=== PATIENT | female | born 1935 | race Caucasian/White ===

== ENCOUNTER → 2016-12-03 | Outpatient (CLI) | payer MEDICARE, BC | LOC: LAB 12:07 | DX: R30.0 Dysuria (principal); B96.20 Unspecified Escherichia coli [E. coli] as the cause of diseases classified elsewhere ==

== ENCOUNTER 2019-01-25 09:39 | Outpatient (RCR) | payer MEDICARE, BC | END 2019-04-25 | disposition still patient (30) | LOC: PT | DX: Z90.49 Acquired absence of other specified parts of digestive tract (principal) ==

== ENCOUNTER 2020-09-30 09:49 | Outpatient (RCR) | payer MEDICARE, BC | END 2020-12-29 | LOC: PT | DX: M25.519 Pain in unspecified shoulder (principal); M54.2 Cervicalgia; R29.898 Other symptoms and signs involving the musculoskeletal system ==

== ENCOUNTER 2022-10-05 12:55 | Inpatient (IN) | payer MEDICARE, BC ==
[~2022-10-05] VITALS: Ht 157.5 cm; Wt 53.5 kg
[2022-10-05] MEDS ORDERED: ASPIRIN E.C. 8181 MG PO (15:20)
[2022-10-05] MEDS ORDERED: CEFDINIR300 MG PO (15:21)
[2022-10-05] MEDS ORDERED: ACETAMINOPHEN500 M7 PO (15:22)
[2022-10-05] MEDS ORDERED: ATORVASTATIN CA40 MG PO (15:22)
[2022-10-05] MEDS ORDERED: ALENDRONATE SOD70 MG PO (15:22)
[2022-10-05] MEDS ORDERED: BENADRYL ALLERG25 M2 PO (15:23)
[2022-10-05] MEDS ORDERED: LANTUS SOLOS100 U/ML SQ (15:40)
[2022-10-05] MEDS ORDERED: LEVOTHYROXIN0.075 MG PO (15:41)
[2022-10-05] MEDS ORDERED: LUTEIN6 M1 PO (15:42)
[2022-10-05] MEDS ORDERED: LISINOPRIL2.5 MG PO (15:42)
[2022-10-05] MEDS ORDERED: PANTOPRAZOLE SO40 MG PO (15:43)
[2022-10-05] MEDS ORDERED: LEADER MELATONIN5 MG PO (15:43)
[2022-10-05] MEDS ORDERED: LOPRESSOR 225 MG/TAB PO (15:44)
[2022-10-05] MEDS ORDERED: SYSTANE HYDRAT1 EACH OP (15:46)
[2022-10-05] MEDS ORDERED: TRAMADOL 50 MG TAB PO (16:41)
[2022-10-05] MEDS ORDERED: PROBIOTIC1 EAC1 PO (16:42)
[2022-10-05] MEDS ORDERED: VITAMIN D3125 MC4 PO (16:44)
[2022-10-05 16:45] VITALS: BP 149/74
[2022-10-06 05:57] VITALS: BP 111/61
[2022-10-06 06:52] LABS: BASO # 0.05 K/mm3 (0.02-0.10); EOS # 0.24 K/mm3 (0.04-0.40); HEMATOCRIT 30.3 % (37.0-47.0); HEMOGLOBIN 9.8 g/dL (12.5-16.0); LYMPH# 2.48 K/mm3 (1.50-4.00); MEAN CELL VOLUME 94 fl (78-100); MEAN CORPUSCULAR HEMOGLOBIN 30 pg (27-31); MEAN CORPUSCULAR HGB CONC 32 g/dL (33-37); MEAN PLATELET VOLUME 11.6 fl (7.4-10.4); NEU # 4.52 K/mm3 (1.40-6.50); PLATELET COUNT 200 K/mm3 (130-400); RED BLOOD COUNT 3.22 M/mm3 (4.10-5.30); RED CELL DISTRIBUTION WIDTH 12.5 % (11.5-14.5); WHITE BLOOD COUNT 7.9 K/mm3 (4.8-10.8)
[2022-10-06 07:37] LABS: ALBUMIN 3.1 g/dL (3.4-4.8)
[2022-10-06 07:39] LABS: CALCIUM 9.3 mg/dL (8.3-10.5)
[2022-10-06 07:42] LABS: TOTAL BILIRUBIN 0.4 mg/dL (0.2-1.2)
[2022-10-06 17:51] VITALS: BP 143/70
[2022-10-06 22:19] LABS: URINE APPEARANCE CLEAR; URINE BILIRUBIN NEGATIVE (NEGATIVE); URINE BLOOD NEGATIVE (NEGATIVE); URINE COLOR YELLOW; URINE GLUCOSE NEGATIVE (NEGATIVE); URINE KETONE NEGATIVE (NEGATIVE); URINE LEUKOCYTE ESTERASE TRACE (NEGATIVE); URINE NITRATE NEGATIVE (NEGATIVE); URINE PROTEIN(semi-quant) TRACE (NEGATIVE); URINE UROBILINOGEN NORMAL (NORMAL)
[2022-10-07 06:05] VITALS: BP 145/63
[2022-10-07 07:30] LABS: BASO # 0.04 K/mm3 (0.02-0.10); EOS # 0.27 K/mm3 (0.04-0.40); HEMOGLOBIN 9.7 g/dL (12.5-16.0); LYMPH# 2.38 K/mm3 (1.50-4.00); MEAN CELL VOLUME 93 fl (78-100); MEAN CORPUSCULAR HEMOGLOBIN 30 pg (27-31); MEAN CORPUSCULAR HGB CONC 32 g/dL (33-37); MEAN PLATELET VOLUME 11.7 fl (7.4-10.4); MONO # 0.71 K/mm3 (0.20-0.80); NEU # 5.58 K/mm3 (1.40-6.50); PLATELET COUNT 212 K/mm3 (130-400); RED BLOOD COUNT 3.22 M/mm3 (4.10-5.30); RED CELL DISTRIBUTION WIDTH 12.5 % (11.5-14.5)
[2022-10-07 07:33] LABS: ALBUMIN 2.9 g/dL (3.4-4.8)
[2022-10-07 07:35] LABS: CALCIUM 8.6 mg/dL (8.3-10.5)
[2022-10-07 07:36] LABS: TOTAL PROTEIN 5.7 g/dL (6.2-8.1)
[2022-10-07 07:38] LABS: TOTAL BILIRUBIN 0.4 mg/dL (0.2-1.2)
[2022-10-07 18:39] VITALS: BP 112/63
[2022-10-08 05:49] VITALS: BP 147/65
[2022-10-08 17:24] VITALS: BP 102/58
[2022-10-09 06:04] VITALS: BP 146/56
[2022-10-09 17:11] VITALS: BP 141/58
[2022-10-10 06:08] VITALS: BP 161/57
[2022-10-10 17:17] VITALS: BP 128/92
[2022-10-11 05:43] VITALS: BP 110/61
[2022-10-11 17:49] VITALS: BP 136/68
[2022-10-12 06:00] VITALS: BP 109/57
[2022-10-12 17:32] VITALS: BP 132/91
[2022-10-13 05:44] VITALS: BP 105/57
[2022-10-13 17:24] VITALS: BP 119/57
[2022-10-14 05:24] VITALS: BP 100/51
[2022-10-14 07:37] LABS: BASO # 0.02 K/mm3 (0.02-0.10); EOS # 0.19 K/mm3 (0.04-0.40); EOS % 1.7 % (1.0-5.0); HEMATOCRIT 31.7 % (37.0-47.0); HEMOGLOBIN 10.3 g/dL (12.5-16.0); LYMPH# 1.42 K/mm3 (1.50-4.00); MEAN CELL VOLUME 92 fl (78-100); MEAN CORPUSCULAR HEMOGLOBIN 30 pg (27-31); MEAN CORPUSCULAR HGB CONC 33 g/dL (33-37); MEAN PLATELET VOLUME 11.3 fl (7.4-10.4); MONO # 0.96 K/mm3 (0.20-0.80); NEU # 8.74 K/mm3 (1.40-6.50); PLATELET COUNT 285 K/mm3 (130-400); RED BLOOD COUNT 3.45 M/mm3 (4.10-5.30); RED CELL DISTRIBUTION WIDTH 13.2 % (11.5-14.5); WHITE BLOOD COUNT 11.4 K/mm3 (4.8-10.8)
[2022-10-14 07:43] LABS: ALBUMIN 2.9 g/dL (3.4-4.8)
[2022-10-14 07:44] LABS: POTASSIUM 3.9 mmol/L (3.5-5.1)
[2022-10-14 07:45] LABS: CALCIUM 9.1 mg/dL (8.3-10.5)
[2022-10-14 07:46] LABS: TOTAL PROTEIN 5.8 g/dL (6.2-8.1)
[2022-10-14 07:48] LABS: TOTAL BILIRUBIN 0.5 mg/dL (0.2-1.2)
[2022-10-14 08:54] LABS: URINE APPEARANCE HAZY; URINE BILIRUBIN NEGATIVE (NEGATIVE); URINE BLOOD TRACE (NEGATIVE); URINE COLOR YELLOW; URINE GLUCOSE NEGATIVE (NEGATIVE); URINE KETONE NEGATIVE (NEGATIVE); URINE LEUKOCYTE ESTERASE TRACE (NEGATIVE); URINE NITRATE NEGATIVE (NEGATIVE); URINE PROTEIN(semi-quant) TRACE (NEGATIVE); URINE UROBILINOGEN NORMAL (NORMAL)
[2022-10-14 08:55] LABS: URINE MUCUS PRESENT (NOT PRESENT)
[2022-10-14 18:24] VITALS: BP 124/57
[2022-10-15 05:39] VITALS: BP 116/58
[2022-10-15 16:29] VITALS: BP 96/58
[2022-10-16 06:07] VITALS: BP 150/61
[2022-10-16 17:24] VITALS: BP 147/62
[2022-10-17 06:17] VITALS: BP 134/58
[2022-10-17 17:49] VITALS: BP 115/51
[2022-10-18 06:06] VITALS: BP 119/62
[2022-10-18 18:12] VITALS: BP 109/49
[2022-10-19 05:38] VITALS: BP 132/62
[2022-10-19 17:15] VITALS: BP 128/73
[2022-10-20 05:47] VITALS: BP 131/49
[2022-10-20 18:20] VITALS: BP 120/48
[2022-10-21 05:43] VITALS: BP 118/51
[2022-10-21 13:14] LABS: URINE APPEARANCE CLEAR; URINE COLOR YELLOW
[2022-10-21 13:15] LABS: URINE BILIRUBIN NEGATIVE (NEGATIVE); URINE BLOOD NEGATIVE (NEGATIVE); URINE GLUCOSE NEGATIVE (NEGATIVE); URINE KETONE NEGATIVE (NEGATIVE); URINE LEUKOCYTE ESTERASE TRACE (NEGATIVE); URINE MUCUS PRESENT (NOT PRESENT); URINE NITRATE NEGATIVE (NEGATIVE); URINE PROTEIN(semi-quant) 1+ (NEGATIVE); URINE UROBILINOGEN NORMAL (NORMAL)
[2022-10-21 17:34] VITALS: BP 121/48
[2022-10-22 06:09] VITALS: BP 135/63
== END 2022-10-22 11:00 | disposition home health service (06) | DRG 560 ==
LOC: MED/SURG 12:55
PROVIDERS: Family Medicine; Physician Assistant; ADMIT Nurse Practitioner
DX: S72.012D Unspecified intracapsular fracture of left femur, subsequent encounter for closed fracture with routine healing (principal); E87.1 Hypo-osmolality and hyponatremia; N39.0 Urinary tract infection, site not specified; E03.9 Hypothyroidism, unspecified; I25.10 Atherosclerotic heart disease of native coronary artery without angina pectoris; E11.22 Type 2 diabetes mellitus with diabetic chronic kidney disease; N18.30 Chronic kidney disease, stage 3 unspecified; I12.9 Hypertensive chronic kidney disease with stage 1 through stage 4 chronic kidney disease, or unspecified chronic kidney disease; K21.9 Gastro-esophageal reflux disease without esophagitis; H91.90 Unspecified hearing loss, unspecified ear; E78.5 Hyperlipidemia, unspecified; M19.90 Unspecified osteoarthritis, unspecified site; W19.XXXD Unspecified fall, subsequent encounter; Z79.82 Long term (current) use of aspirin; Z79.4 Long term (current) use of insulin; Z79.891 Long term (current) use of opiate analgesic; Z79.890 Hormone replacement therapy; Z96.642 Presence of left artificial hip joint; Z85.828 Personal history of other malignant neoplasm of skin; Z86.718 Personal history of other venous thrombosis and embolism; Z90.49 Acquired absence of other specified parts of digestive tract; Z88.8 Allergy status to other drugs, medicaments and biological substances
CPT/HCPCS: J1815